=== PATIENT | female | born 2000 | race Caucasian/White ===

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

== ENCOUNTER 2020-06-13 15:58 | Emergency (ER) | payer OTHER ==
[~2020-06-13] VITALS: Ht 160 cm; Wt 59.0 kg
[2020-06-13 16:32] VITALS: Ht 160 cm; Wt 59.0 kg
[2020-06-13 16:59] LABS: BASOPHIL % 0.7 % (0-2); PLATELET COUNT 259 x10^3mcL (130-400)
[2020-06-13 17:15] LABS: CALCIUM 8.2 mg/dL (8.5-10.1); CARBON DIOXIDE 22.7 mmol/L (21-32); CHLORIDE SERUM 106 mmol/L (98-107); CREATININE SERUM 0.9 mg/dL (0.6-1.0); GFR1 > 60 mL/min; GLUCOSE SERUM 123 mg/dL (74-106); POTASSIUM SERUM 3.4 mmol/L (3.5-5.1); SODIUM SERUM 140 mmol/L (136-145)
[2020-06-13 17:19] LABS: ALBUMIN 4.1 g/dL (3.4-5.0); ALKALINE PHOSPHATASE 89 U/L (46-116); ALT/SGPT 31 U/L (14-59); AST/SGOT 23 U/L (15-37); BILIRUBIN TOTAL 1.3 mg/dL (0.20-1.00); TOTAL PROTEIN, SERUM 7.2 g/dL (6.4-8.2)
[2020-06-13 23:58] VITALS: BP 103/60
== END 2020-06-13 23:58 | disposition home or self-care (01) ==
LOC: ED 15:58
PROVIDERS: Specialist
DX: T40.7X1A Poisoning by cannabis (derivatives), accidental (unintentional), initial encounter (principal); F19.10 Other psychoactive substance abuse, uncomplicated; Y92.89 Other specified places as the place of occurrence of the external cause
CPT/HCPCS: G0480

== ENCOUNTER 2020-11-05 21:35 | Emergency (ER) | payer OTHER, SELFPAY ==
[~2020-11-05] VITALS: Ht 157.5 cm; Wt 65.8 kg
[2020-11-05 21:55] VITALS: Ht 157.5 cm; Wt 65.8 kg
[2020-11-05 23:59] VITALS: BP 123/71
== END 2020-11-05 23:59 | disposition home or self-care (01) ==
LOC: ED 21:35
DX: H60.92 Unspecified otitis externa, left ear (principal)